=== PATIENT | female | born 1930 | race Caucasian/White ===

== ENCOUNTER 2016-11-16 10:44 | Emergency (ER) | payer MEDICARE, OTHER ==
[~2016-11-16] VITALS: Ht 157.5 cm; Wt 56.1 kg
[2016-11-16 11:01] VITALS: BP 150/64; PULSE 88; RESP 16; TEMP 98.3; O2SAT 98
[2016-11-16] MEDS ORDERED: COUM2TAB PO (11:17)
[2016-11-16] MEDS ORDERED: INSU100V SQ ×2 (11:17)
[2016-11-16] MEDS ORDERED: TOPR50TA PO (11:17)
[2016-11-16] MEDS ORDERED: ATAC32TA4 PO (11:17)
--- NOTE | 2016-11-16 11:51 | PD ---
HPI Chief Complaint: Cold / Flu Symptoms Time Seen by Provider: 11:18 Travel History International Travel<30 days: No Contact w/Intl Traveler<30days: No Traveled to known affect area: No History of Present Illness HPI This is a well 86 year-old woman who presents emergency Department with cough cold symptoms ongoing for past couple days. She's had sore throat, congestion, losing her voice, ongoing for the past day or so. She's flying into town here for a wedding. She has some trouble constipation. No diarrhea. She doesn't some queasiness and nausea in her belly. No vomiting. No other sick contacts. No other complaints. History Past Medical History Narrative Medical A. fib Hypertension Diabetes Tetanus Vaccination: Unknown Influenza Vaccination: Yes Social History Alcohol Use: No Tobacco Use: No Allergies-Medications (Allergen,Severity, Reaction): Coded Allergies: Penicillin (Verified Allergy, Intermediate, RASH, 11/16/16) Codeine (Verified Allergy, Unknown, UNKNOWN, 11/16/16) Keflex (Verified Allergy, Unknown, UNKNOWN, 11/16/16) Sulfa (Verified Allergy, Unknown, UNKNOWN, 11/16/16) Tetracycline (Verified Allergy, Unknown, UNKNOWN, 11/16/16) Reported Meds & Prescriptions Reported Meds & Active Scripts Active Reported Humalog Mix 75-25 Inj (Insulin Lispro Protam/Lispro Human) 1,000 Unit/10 Ml Susp 6 Units SQ DAILY@1600 Humalog Mix 75-25 Inj (Insulin Lispro Protam/Lispro Human) 1,000 Unit/10 Ml Susp 12 Units SQ DAILY@0600 Coumadin (Warfarin) 2 Mg Tab 2 Mg PO DAILY Atacand Hct (Candesartan-Hydrochlorothiazide) 32-12.5 Mg Tab 1 Tab PO DAILY Toprol XL (Metoprolol Succinate) 50 Mg Tab 50 Mg PO DAILY Review of Systems Except as stated in HPI: all other systems reviewed are Neg Physical Exam Narrative GENERAL: Well-appearing 86-year-old woman, no acute distress. SKIN: Focused skin assessment warm/dry. Low but pale-appearing. HEAD: Atraumatic. Normocephalic. EYES: Pupils equal and round. No scleral icterus. No injection or drainage. ENT: No nasal bleeding or discharge. Mucous membranes pink and moist. TMs are normal. Throat is normal. NECK: Trachea midline. No JVD. CARDIOVASCULAR: Regular rate and rhythm. No murmur appreciated. RESPIRATORY: No accessory muscle use. Clear to auscultation. Breath sounds equal bilaterally. GASTROINTESTINAL: Abdomen soft, non-tender, nondistended. Hepatic and splenic margins not palpable. MUSCULOSKELETAL: No obvious deformities. No edema. NEUROLOGICAL: Awake and alert. No obvious cranial nerve deficits. Motor grossly within normal limits. Normal speech. PSYCHIATRIC: Appropriate mood and affect; insight and judgment normal. Data Data Last Documented VS Vital Signs Date Time Temp Pulse Resp B/P Pulse Ox O2 Delivery O2 Flow Rate FiO2 11/16/16 11:18 18 98 11/16/16 11:01 98.3 88 150/64 MDM Medical Decision Making Medical Screen Exam Complete: Yes Emergency Medical Condition: Yes Differential Diagnosis Cough cold symptoms, URI, pneumonia, congestion, other Narrative Course Medical decision making 86 old woman with URI symptoms. Looks well. No fevers. No evidence of pneumonia on exam. Recommend supportive treatment. Diagnosis Primary Impression: URI (upper respiratory infection) Qualified Code: J06.9 - Viral upper respiratory tract infection Patient Instructions: General Instructions Departure Forms: Tests/Procedures Additional Instructions: Use acetaminophen as needed for sore throat or body aches. Take Robitussin as needed for cough. Follow-up with your primary physician when he returns home if you're not completely well. Return to the emergency department for any new or worsening symptoms. Med/Other Pt SpecificInfo: No Change to Meds Disposition: 01 DISCHARGE HOME Condition: Stable Srinvias Hammer MD Nov 16, 2016 11:51
== END 2016-11-16 12:04 | disposition home or self-care (01) ==
LOC: PHED 10:44
DX: J06.9 Acute upper respiratory infection, unspecified (principal); I10 Essential (primary) hypertension; I48.91 Unspecified atrial fibrillation; E11.9 Type 2 diabetes mellitus without complications; Z79.4 Long term (current) use of insulin
CPT/HCPCS: 99282